=== PATIENT | female | born 1965 | race Caucasian/White ===

== ENCOUNTER → 2018-11-04 | Day surgery (SDC) | payer BC ==
[~2018-11-04] MED LIST: BIRTH CONTROL PO; BONIVA PO; CALCIUM ACETAT667 M1 PO; FENTANYL CITRATE/PF 100MCG/2 ML INJ ONE; FISH OIL 1,0001 EAC2 PO; FOSAMAX70 MG PO; LIDOCAINE HCL 2% LOCAL INJ 5 ML SDV VIAL INJ ONE; MIDAZOLAM HCL 2 MG/2 ML VIAL ONE; MULTIVITAMINS1 EAC7 PO; PROPOFOL IV EMULSION 10 MG/ML 50 ML VIAL ONE; VITAMIN C100 MG PO
--- OUTSIDE RECORDS SUMMARY | 2018-11-04 06:55 | XMS REPORT ---
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 Allergies, Adverse Reactions, Alerts Allergy Name Allergy Type Status Severity Reaction(s) Onset Date Inactive Date Treating Clinician Comments No Known Allergies DA Active U 2016-07-20 00:00:00 Medications This patient has no known medications.
--- OUTSIDE RECORDS SUMMARY | 2018-11-04 06:55 | XMS REPORT | Summary of Care ---
Author Author LILIAN SHAFER M.D. 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 Unavailable Unavailable LATONYA Matos, DANIELLE Unavailable Unavailable GUSTAVO TAVERAS NE, TREY Alvarez Unavailable Unavailable GUSTAVO Matos, TREY Unavailable Unavailable Unavailable Unavailable Functional Status Name Dates Details Functional status health issues are not documented Status: Name Dates Details Cognitive status health issues are not documented Status: Problems Name Dates Details Tendonitis (726.90, M77.9) Status: Active Arthralgia (719.40, M25.50) Status: Active Carpal tunnel syndrome of right wrist (354.0, G56.01) Status: Active Lateral epicondylitis of left elbow (726.32, M77.12) Status: Active Medial epicondylitis, left (726.31, M77.02) Status: Active Arthralgia of right foot (719.47, M25.571) Status: Active Enthesitis (726.90, M77.9) Status: Active Arm pain (729.5, M79.603) Status: Active Lower back pain (724.2, M54.5) Status: Active Hyperlipidemia (272.4, E78.5) Status: Active Need for Tdap vaccination (V06.1, Z23) Status: Active Breast cancer screening (V76.10, Z12.31) Status: Active Medications Name Dates Details Multivitamins CAPS TAKE 1 CAPSULE DAILY. Active Fish Oil 1000 MG Oral Capsule TAKE 1 CAPSULE DAILY * Refills: 0 Active Calcium 600 TABS TAKE 2 TABLETS DAILY. * Refills: 0 Active Vitamin C CAPS TAKE 1 CAPSULE DAILY. * Refills: 0 Active Estroven TABS TAKE 1 TABLET DAILY * Refills: 0 Active Wrist Splint Firm neutral position wrist splints for each wrist, to be worn at night only. * Quantity: 2 Refills: 0 DANIELLE HANKS M.D. * Start : 10-Mar-2016 Active Naproxen 500 MG Oral Tablet TAKE 1 TABLET EVERY 12 HOURS WITH FOOD. * Quantity: 60 Refills: 1 DANIELLE HANKS M.D. * Start : 11-Mar-2016 Active Allergies and Adverse Reactions Name Dates Details Erythromycin TABS (Allergy) Status: Active Past Medical History Name Dates Details History of allergic rhinitis (V12.69, Z87.09) Status: Resolved History of Osteoporosis (733.00, M81.0) Status: Resolved History of Sinusitis (473.9, J32.9) Status: Resolved Procedures Procedure Dates Details [facility] Digital Mammo Screening James G0202 Date: 13-Jul-2017 History of Tonsillectomy With Adenoidectomy Completed Immunization Name Dates Details PPD on: 10-Mar-2016 Tdap Lot #: [id number] on: 25-Mar-2017 Family History Name Dates Details Family history of Hypertension (V17.49) Status: Active Family history of osteopenia (V17.89, Z82.69) Status: Active Name Dates Details Family history of Diabetes Mellitus (V18.0) Status: Active Family history of Coronary Artery Disease (V17.49) Status: Active Family history of Prostate Cancer (V16.42) Status: Active Family history of Lung Cancer (V16.1) Status: Active Name Dates Details Family history of rheumatoid arthritis (V17.7, Z82.61) Status: Active Family history of osteopenia (V17.89, Z82.69) Status: Active Social History Name Dates Details - Status: Name Dates Details Never smoker Vital Signs Date Test Result Details No Known Vitals to report Results Date Description Value Details Results not documented Plan of Care Name Dates Details Planned Observations Planned Goals not documented Interventions Provided Labs/Procedures/Imaging* MA Digital Mammo Screening James G0202; To Be Done: 13 Jul 2017 Instructions Name Dates Details Instructions not documented Encounters Appointment; LILIAN SHAFER M.D. Encounter Diagnosis: Problem not documented On: 26-Aug-2015 17:00 Appointment; LILIAN SHAFER M.D. Encounter Diagnosis: Problem not documented On: 25-Feb-2016 8:30 Appointment; DANIELLE HANKS M.D. Encounter Diagnosis: Problem not documented On: 10-Mar-2016 15:00 Appointment; LILIAN SHAFER M.D. Encounter Diagnosis: Problem not documented On: 28-Mar-2016 9:30 Appointment; LILIAN SHAFER M.D. Encounter Diagnosis: Problem not documented On: 25-Mar-2017 9:00
[2018-11-04 10:50] VITALS: BP 110/71
--- NOTE | 2018-11-04 16:56 | Operative Report ---
DATE OF PROCEDURE: 11/04/2018 SURGEON: Fausto Luna MD PROCEDURE: EGD with biopsies and polypectomy and colonoscopy with biopsies. INDICATIONS FOR EGD: Dyspepsia. INDICATIONS FOR COLONOSCOPY: History of persistent diarrhea in the recent past. MEDICATIONS: The patient was done under MAC, please see anesthesiologist's note. PROCEDURE IN DETAIL: With the patient in left lateral decubitus position, flexible fiberoptic Olympus gastroscope was introduced into the esophagus under direct visualization without any difficulty. There was some patchy erythema noted in distal esophagus. The scope was then advanced with ease into the stomach. Mucosa overlying the antrum and the body revealed some patchy intense erythema and low-grade to moderate edema and biopsies were obtained and sent to stain for H pylori. An approximately 1 cm sessile polypoid lesion midbody lesser curvature was noted and that was removed per snare electrocautery. The pylorus was of normal contour and shape. It was intubated with ease and the scope was advanced all the way to the second portion of the duodenum. The scope was then withdrawn slowly and biopsies were obtained from the proximal second portion and duodenal bulb to rule out sprue. The scope was then withdrawn back into the stomach and retroflexed and mucosa overlying the fundus and cardia appeared to be within normal limits. The scope was then straightened out, it was subsequently withdrawn. The patient tolerated procedure well. IMPRESSION: 1. Mild distal esophagitis. 2. Gastritis, biopsied. Biopsies sent to stain for H pylori. 3. Approximately 1 cm sessile polypoid lesion, midbody lesser curvature, removed per snare electrocautery. 4. Rule out sprue. PLAN: Follow up histology. Initiate Protonix 40 mg one p.o. q.a.m. a.c. PROCEDURE IN DETAIL: The patient was then turned around after adequate lubrication of the anal canal, a flexible fiberoptic Olympus colonoscope was inserted into the rectum with ease and advanced all the way to the cecum. Mucosa overlying the cecum appeared to be within normal limits. The ileocecal valve was intubated and the scope was advanced into the terminal ileum. Biopsies were obtained. The scope was then withdrawn back into the colon. It was then withdrawn slowly. Mucosa overlying the ascending and the transverse grossly appeared to be within normal limits. Mild inflammatory changes were noted in the left colon. Multiple random biopsies were obtained. Prominent submucosal fine nodularity was noted in the distal rectum and hot biopsies were obtained. The scope was then retroflexed into the distal rectum and moderate-sized internal hemorrhoids were noted, none of which was actively bleeding. The scope was then straightened out, it was subsequently withdrawn. The patient tolerated procedure well. IMPRESSION: 1. Mild patchy left-sided colitis. 2. Prominent submucosal fine nodularity, distal rectum. Hot biopsies obtained. 3. Internal hemorrhoids, none actively bleeding. PLAN: Follow up histology. Initiate high-fiber, low-fat diet. Initiate high-fiber supplement. Timing of followup colonoscopy pending pathology report. Fausto Luna MD [facility] [place]/[facility] /[id number] cc: Ana Alves MD
== END | disposition home or self-care (01) ==
LOC: OR 06:53
PROVIDERS: ATTEND Internal Medicine Gastroenterology
DX: K51.50 Left sided colitis without complications (principal); K31.7 Polyp of stomach and duodenum; K29.50 Unspecified chronic gastritis without bleeding; K20.9 Esophagitis, unspecified; K62.89 Other specified diseases of anus and rectum; K64.8 Other hemorrhoids; Z88.1 Allergy status to other antibiotic agents; Z01.810 Encounter for preprocedural cardiovascular examination
CPT/HCPCS: 43239; 43251; 45380; 45384; 93005; J2001; J2250; J2704; 45378

== ENCOUNTER → 2023-11-26 | Day surgery (SDC) | payer BC ==
[~2023-11-26] MED LIST changes: -FENTANYL CITRATE/PF 100MCG/2 ML INJ ONE; +LACTATED RINGER'S 1,000 ML ONE; -MIDAZOLAM HCL 2 MG/2 ML VIAL ONE; +PROPOFOL IV EMULSION 10 MG/ML 20 ML VIAL ONE; -PROPOFOL IV EMULSION 10 MG/ML 50 ML VIAL ONE; +VITAMIN D31 ML
[2023-11-26] MEDS: LACTATED RINGER'S 1,000 ML BAG IV ONE (06:52)
[2023-11-26 08:07] VITALS: TEMP 97
[2023-11-26 08:20] VITALS: BP 136/91; PULSE 76; RESP 16; O2SAT 98
== END | disposition home or self-care (01) ==
LOC: OR 05:41
PROVIDERS: ATTEND Internal Medicine Gastroenterology
DX: Z12.11 Encounter for screening for malignant neoplasm of colon (principal); D12.5 Benign neoplasm of sigmoid colon; K64.8 Other hemorrhoids; Z88.1 Allergy status to other antibiotic agents; M85.80 Other specified disorders of bone density and structure, unspecified site; Z01.810 Encounter for preprocedural cardiovascular examination; Z87.01 Personal history of pneumonia (recurrent)
CPT/HCPCS: 45385; 93005; J2001; J2704; J7121; 45378